=== PATIENT | male | born 1985 | race African-American/Black ===

== ENCOUNTER 2020-09-14 21:47 | Emergency (ER) | payer OTHER ==
[~2020-09-14] VITALS: Ht 177.8 cm; Wt 99.8 kg
[2020-09-14] MEDS ORDERED: PREDNISONE50 MG PO (22:33)
[2020-09-14 23:16] VITALS: BP 117/75
== END 2020-09-14 23:16 | disposition home or self-care (01) ==
LOC: M.ERS 21:47
DX: K11.20 Sialoadenitis, unspecified (principal); J45.909 Unspecified asthma, uncomplicated

== ENCOUNTER 2020-12-17 13:01 | Emergency (ER) | payer OTHER ==
[~2020-12-17] VITALS: Ht 180.3 cm; Wt 98.0 kg
[~2020-12-17 13:01] MED LIST: PREDNISONE50 MG PO
[2020-12-17 13:39] LABS: URINE BILIRUBIN NEGATIVE (Negative); URINE BLOOD NEGATIVE (Negative); URINE CLARITY CLEAR; URINE COLOR YELLOW; URINE GLUCOSE-RANDOM NEGATIVE (Negative); URINE KETONES TRACE (Negative); URINE LEUKOCYTES-REFLEX TRACE (Negative); URINE NITRITE-REFLEX NEGATIVE (Negative); URINE PROTEIN NEGATIVE (Negative); URINE SPECIFIC GRAVITY 1.025 (1.005-1.030)
[2020-12-17 13:47] LABS: SQUAMOUS 0-3 Few /LPF (0-3)
[2020-12-17 13:48] LABS: BACTERIA-REFLEX >30 Many /HPF (None Seen); URINE RBC None Seen /HPF (0-2); URINE WBC-REFLEX 6-15 Few /HPF (0-5)
[2020-12-17 13:49] LABS: CASTS None Seen /LPF (None Seen); CRYSTALS None Seen /LPF (None Seen); MUCUS None Seen strn/LPF (None Seen)
[2020-12-17] MEDS ORDERED: CIPRO500 MG PO (14:26)
[2020-12-17 14:46] VITALS: BP 125/70
== END 2020-12-17 15:00 | disposition home or self-care (01) ==
LOC: M.ERS 13:01
PROVIDERS: Physician Assistant
DX: N39.0 Urinary tract infection, site not specified (principal); R36.9 Urethral discharge, unspecified; J45.909 Unspecified asthma, uncomplicated